=== PATIENT | male | born 1990 ===

== ENCOUNTER 2024-09-10 11:26 | Emergency (ER) | payer MEDICAID ==
[~2024-09-10] VITALS: Ht 172.7 cm; Wt 100.0 kg
[2024-09-10 11:36] VITALS: O2SAT 98
[2024-09-10 11:37] VITALS: BP 164/110; PULSE 100; RESP 18; TEMP 98.6; O2SAT 100
[2024-09-10] MEDS ORDERED: TOPUD MT (16:23)
[2024-09-10] MEDS ORDERED: IBUP-1525 MT (16:23)
== END 2024-09-10 16:27 | disposition home or self-care (01) ==
LOC: ER 11:41
DX: S01.91XA Laceration without foreign body of unspecified part of head, initial encounter (principal); Y04.0XXA Assault by unarmed brawl or fight, initial encounter; Y93.89 Activity, other specified; Y92.89 Other specified places as the place of occurrence of the external cause; Y99.8 Other external cause status
CPT/HCPCS: 70450; 12013; 99284; Z7610 ×2